=== PATIENT | female | born 1960 | race Caucasian/White ===

== ENCOUNTER 2020-01-15 05:47 | Outpatient (CLI) | payer BC ==
[~2020-01-15] VITALS: Ht 167.7 cm; Wt 86.4 kg
[2020-01-15] MEDS ORDERED: LEVO25TA5 PO (15:01)
== END 2020-01-15 15:11 | disposition home or self-care (01) ==
LOC: PREOP 05:47
PROVIDERS: ATTEND Surgery
DX: Z01.818 Encounter for other preprocedural examination (principal)

== ENCOUNTER → 2020-01-17 | Day surgery (SDC) | payer BC ==
[~2020-01-17] MED LIST: LEVO25TA5 PO; LIDOCAINE JELLY 2% 6 ML SYRINGE ONE; MIDAZOLAM 5 MG/5 ML (VERSED) VIAL ONE; NS IV 500 ML 500 ML ONE; fentaNYL INJECTION 100 MCG/2 ML AMP ONE
--- NOTE | 2020-01-30 15:50 | OPERATIVE REPORT ---
DATE OF SERVICE: 01/17/2020 ATTENDING PRIMARY SNOW TECHNICIAN: Daly Ying APRN. PREOPERATIVE DIAGNOSIS: Screening colonoscopy with family history of colon cancer. POSTOPERATIVE DIAGNOSIS: Normal colon and rectum. PROCEDURE PERFORMED: Colonoscopy. SURGEON: Samuel Renee MD. ANESTHESIA: Conscious sedation. ESTIMATED BLOOD LOSS: Minimal. FINDINGS: No significant hemorrhoids, remainder of the rectum and colon were normal. DISPOSITION: The patient tolerated the procedure well. INDICATIONS FOR PROCEDURE: The patient is a 59-year-old female referred over to us for a screening colonoscopy. Her last colonoscopy was in 2008, which was normal. She does report a family history of colon cancer with her mother having the disease being diagnosed at 81 years of age. She states that she is doing well otherwise and does not report any major issues with diarrhea nor constipation as well as no red blood per rectum nor any dark tarry stools. DESCRIPTION OF PROCEDURE: The patient was brought to the endoscopy suite and laid in the left lateral decubitus position. After adequate IV pain and sedative medications and conscious sedation anesthesia, a digital rectal examination was performed. No significant hemorrhoids were identified. Normal sphincter tone was felt and there were no palpable masses. The endoscope was then intubated and the anus and rectum gently insufflated. The endoscope was then advanced through the valves of Hoffman of the rectum with no polyps or any neoplasms identified. Through the sigmoid colon, no diverticulosis identified. The endoscope was then advanced to the remainder of the descending, transverse and ascending colon to the cecum. These segments were normal. There were no polyps or any neoplasms identified throughout the colon or rectum. The endoscope was then slowly withdrawn while taking a second look and suctioning of residual air with no additional findings. The patient tolerated the procedure well. We will recommend continued medical management with a high fiber diet with at least 25 grams of fiber daily as well as significant amounts of water to promote soft stools on a daily basis. If she is asymptomatic, she does not need another colonoscopy for another five years. Job ID: [id number] DocumentID: [id number] Dictated Date: 01/30/2020 15:01:35 Patient Day Coordinator Date: 01/30/2020 15:49:31 Dictated By: SAMUEL RENEE MD
== END | disposition home or self-care (01) ==
LOC: ENDO 10:30
PROVIDERS: ATTEND Surgery
DX: Z12.11 Encounter for screening for malignant neoplasm of colon (principal); Z80.0 Family history of malignant neoplasm of digestive organs; E03.9 Hypothyroidism, unspecified; J44.9 Chronic obstructive pulmonary disease, unspecified; F17.210 Nicotine dependence, cigarettes, uncomplicated; Z79.890 Hormone replacement therapy

== ENCOUNTER → 2023-03-19 | Outpatient (CLI) | payer BC ==
[~2023-03-19] MED LIST changes: -LIDOCAINE JELLY 2% 6 ML SYRINGE ONE; -MIDAZOLAM 5 MG/5 ML (VERSED) VIAL ONE; -NS IV 500 ML 500 ML ONE; -fentaNYL INJECTION 100 MCG/2 ML AMP ONE
--- NOTE | 2023-03-22 12:27 | Diagnostic Imaging Report ---
INDICATION: Routine screening. COMPARISON: 01/19/2022 and 08/18/2019. TECHNIQUE: 2D and 3D bilateral screening mammography was performed with CAD. FINDINGS: Scattered fibroglandular densities are identified bilaterally. The parenchymal pattern is stable. No mass or malignant-appearing microcalcifications are identified. The axillae are unremarkable. IMPRESSION: No mammographic features suspicious for malignancy are identified. ACR BI-RADS Category 1: Negative. Result letter will be mailed to the patient. Note: At least 10% of breast cancer is not imaged by mammography. Dictated by: Dictated on workstation # [id number]
== END ==
LOC: RAD 15:00
PROVIDERS: ATTEND Registered Nurse
DX: Z12.31 Encounter for screening mammogram for malignant neoplasm of breast (principal)
CPT/HCPCS: 77063; 77067